=== PATIENT | female | born 1980 | race Caucasian/White ===

== ENCOUNTER 2017-06-26 06:24 | Day surgery (SDC) | payer OTHER ==
[~2017-06-26] VITALS: Ht 157.5 cm; Wt 80.7 kg
[2017-06-26 06:46] VITALS: BP 106/57
[2017-06-26 09:32] VITALS: BP 109/65
== END 2017-06-26 09:50 | disposition home or self-care (01) ==
LOC: GI 06:24 → OR 07:30 → GI 07:30
PROVIDERS: Internal Medicine Gastroenterology
PROC: 0DB68ZX Excision of Stomach, Via Natural or Artificial Opening Endoscopic, Diagnostic (ICD-10-PCS; principal; 2017-06-26 07:30)
DX: D64.9 Anemia, unspecified (principal); R10.13 Epigastric pain; Z98.84 Bariatric surgery status; Z98.0 Intestinal bypass and anastomosis status
CPT/HCPCS: 43235; J1200; J1610; J2250; J2310; J3010; J3490